=== PATIENT | male | born 1995 | race Caucasian/White ===

== ENCOUNTER 2018-11-11 21:59 | Emergency (ER) | payer SELFPAY ==
[~2018-11-11] VITALS: Wt 77.3 kg
[2018-11-11 22:16] VITALS: BP 131/61; PULSE 85; RESP 20
== END 2018-11-12 01:58 | disposition left against medical advice (07) ==
LOC: FTE 21:59
DX: Z53.21 Procedure and treatment not carried out due to patient leaving prior to being seen by health care provider (principal)